=== PATIENT | female | born 1970 | race Caucasian/White ===

== ENCOUNTER 2023-05-05 07:59 | Observation (INO) ==
--- NOTE | 2023-04-27 13:58 | PAT Medication Instructions ---
Medication Instructions Date of Service April 27, 2023 Home Medications Magnesium Blend 1 tab PO QAM calcium carbonate 600 mg calcium (1,500 mg) tablet (Calcium) 600 mg PO DAILY cholecalciferol (vitamin D3) 25 mcg (1,000 unit) tablet (Vitamin D3) 25 mcg PO DAILY lactobacillus combination no.4 3 billion cell capsule (Probiotic) 3,000 mmu cells PO DAILY multivitamin 1 tab PO QAM DO NOT take the morning of surgery Magnesium Blend 1 tab PO QAM calcium carbonate 600 mg calcium (1,500 mg) tablet (Calcium) 600 mg PO DAILY cholecalciferol (vitamin D3) 25 mcg (1,000 unit) tablet (Vitamin D3) 25 mcg PO DAILY lactobacillus combination no.4 3 billion cell capsule (Probiotic) 3,000 mmu cells PO DAILY multivitamin 1 tab PO QAM Other Notes If you have any questions please call us at [phone] or [phone] or [phone] or [phone]
--- NOTE | 2023-04-28 12:01 | Anesthesiology Consultation ---
Date of Service April 28, 2023 Assessment & Plan (1) Encounter for pre-operative examination: - Infectious disease screening: Per assessment on 04/28/23: No known infectious disease contacts or current infectious disease symptoms. No noted recent Covid positive test result. - PCP visit (04/27/23): "Low medical risk for the listed procedure" Chart Review Chart Review: Acceptable Risk for Surgery and Patient seen in Pre Admission Testing Teaching & Discussion Pre-Anesthesia Teaching/Discussion Notes: Instructed NPO after midnight before surgery,except medications with 15 cc of water. Medication instructions provided according to the PAT guidelines. History Surgery Operation Date: 05/05/23 09:55 Proposed Procedures p C6 Corpectomy With Spinal Cord Monitoring - London Lawrence, Height/Weight Height: 5 ft 2 in Weight: 60.5 kg Allergies Allergy/AdvReac Type Severity Reaction Status Date / Time diphenhydramine AdvReac Unknown Hyperactivity, Verified 04/28/23 12:18 fatigue Medications Home Medications Medication Instructions Recorded Confirmed Last Taken Magnesium Blend 1 tab PO QAM 04/24/23 04/24/23 Unknown calcium carbonate 600 mg calcium 600 mg PO DAILY 04/24/23 04/24/23 Unknown (1,500 mg) tablet (Calcium) cholecalciferol (vitamin D3) 25 25 mcg PO DAILY 04/24/23 04/24/23 Unknown mcg (1,000 unit) tablet (Vitamin D3) lactobacillus combination no.4 3 3,000 mmu cells PO DAILY 04/24/23 04/24/23 Unknown billion cell capsule (Probiotic) multivitamin 1 tab PO QAM 04/24/23 04/24/23 Unknown Past Medical History Medical History Cervical spondylosis GERD (gastroesophageal reflux disease) Per [facility] records 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, 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 Exercise / Class Metabolic Activity II 4-5 Yardwork/Stairs/Walk up hill (one FS: No CP, no SOB) Past Family History Family History Other No family history of adverse response to anesthesia Past Surgical History Surgical History History of esophagogastroduodenoscopy (EGD) Hx of colonoscopy Hx of hysterectomy Hx of lymph node excision right axilla Hx of wisdom tooth extraction Past Anesthesia History No Hx of Anesthesia Complications and No Family Hx of Anesthesia Complications History of PONV No Hx of PONV and No Hx of Motion Sickness Social History Smoking Status: Never smoker Do You Dip or Chew Tobacco: No Hx Alcohol Use: No Hx Substance Use: No substance use type: does not use Review of Systems Patient denies chest pain, shortness of breath, dyspnea on exertion, fever, chills, cough, wheezing, palpitations. Physical Exam Vital Signs BP 102/70 P 68 TEMP 98.1 SP02 97%RA RESP 16 Physical Full cervical extension range of motion. Full TMJ range of motion. TMD 3 finger breaths Mallampati Score 2 Dentition: intact, + crown Lungs: clear throughout to auscultation Cardiac: regular rate and rhythm, no murmurs noted Spine: normal Carotid arteries: negative bruit Extremities: no LE edema Lab Results Anesthesia Preop Results Results Anesthesia Widget: WBC 5.82 K/ul (4.8-10.8) 04/28/23 Hgb 12.7 g/dl (12.0-16.0) 04/28/23 Hct 37.7 % (37.0-47.0) 04/28/23 Plt 295 K/uL (130-400) 04/28/23 Na 137 mmol/L (136-145) 04/28/23 K 3.7 mmol/L (3.5-5.1) 04/28/23 Cl 104 mmol/L (98-107) 04/28/23 CO2 27 mmol/L (21-32) 04/28/23 BUN 10 mg/dl (6-23) 04/28/23 Creat 0.62 mg/dl (0.6-1.2) 04/28/23 Glucose Level 128 mg/dl (70-99(Fasting)) H 04/28/23 PT 10.9 Seconds (9.0-12.0) 04/28/23 PTT 27 Seconds (21-31) 04/28/23 INR 1.0 (0.9-1.1) 04/28/23 Urine Color Yellow 04/28/23 Urine Appearance Clear (Clear) 04/28/23 Urine pH 7.0 (4.5-7.5) 04/28/23 Urine Specific [place] 1.008 (1.000-1.030) 04/28/23 Urine Protein Negative (Negative) 04/28/23 Urine Glucose (UA) Negative (Negative) 04/28/23 Urine Ketones Negative (Negative) 04/28/23 Urine Blood Negative (Negative) 04/28/23 Urine Nitrite Negative (Negative) 04/28/23 Urine Bilirubin Negative (Negative) 04/28/23 Urine Urobilinogen Negative (Negative) 04/28/23 Urine Leukocyte Esterase Negative (Negative) 04/28/23 Blood Type A Positive 04/28/23 Antibody Screen NEGATIVE 04/28/23 Testing Electrocardiogram Date: 04/28/23 NSR at 75bpm. "Normal ECG" Chest X-Ray Date: 04/28/23 Findings: + NAD
[~2023-05-05 07:59] MED LIST: DEXAMETHASONE SOD INJ 4 MG/ML VIAL ONE; GLYCOPYRROLATE 0.2 MG/ML VIAL ONE; LIDOCAINE 2% 2 ML VIAL/AMP(20MG/ML) INFIL ONE; MIDAZOLAM HCL 1 MG/ML 2ML VIAL ONE; ONDANSETRON INJ 2 MG/ML 2 ML VIAL ONE; PROPOFOL IV EMULSION 10 MG/ML 20 ML VIAL IV ONE; ROCURONIUM BROMIDE 10 MG/ML 5 ML VIAL IV ONE; fentaNYL citrate PF 100 MCG/2 ML VIAL ONE
[2023-05-05] MEDS: LR 60ML/HR IV SCH (08:21)
[2023-05-05] MEDS ORDERED: fentaNYL citrate PF 100 MCG/2 ML VIAL ONE (08:25)
[2023-05-05] MEDS ORDERED: PHENYLEPHRINE 100MCG/ML 10ML SYR IV ONE (08:29)
[2023-05-05] MEDS: LR 15ML/HR IV SCH (08:37)
[2023-05-05] MEDS: ACETAMINOPHEN 500 MG TAB PO SCH (08:37)
[2023-05-05] MEDS: GABAPENTIN 900 MG DOSE PO SCH (08:37)
[2023-05-05] MEDS: CeleBREX 200 MG CAP PO SCH (08:37)
[2023-05-05] MEDS ORDERED: ATROPINE SULFATE 0.1 MG/ML 10ML SYR IV PRN (08:49)
[2023-05-05] MEDS ORDERED: HYDROmorphone INJ 1 MG/ML SYRINGE IV PRN ×2 (08:49→13:05)
[2023-05-05] MEDS ORDERED: PROMETHAZINE HCL 6.25 MG in SODIUM CHLORIDE 0.9% 50 ML IV PRN (08:49)
[2023-05-05] MEDS ORDERED: ePHEDrine sulfate 50 MG/ML AMP IV PRN (08:49)
[2023-05-05] MEDS ORDERED: ONDANSETRON INJ 2 MG/ML 2 ML VIAL IV PRN ×2 (08:49→13:05)
--- NOTE | 2023-05-05 09:21 | History & Physical Bridge Note ---
Date of Service May 05, 2023 History & Physical Bridge Note I have examined the patient, reviewed the History & Physical and in the interval since the performance of the History & Physical I have noted the following changes of clinical significance: no changes noted
--- NOTE | 2023-05-05 09:22 | History & Physical Report ---
Date of Service May 05, 2023 Assessment & Plan (1) Myelopathy concurrent with and due to spinal stenosis of cervical region: Plan: C6 corpectomy History of Present Illness Chief Complaint: Neck and arm pain Primary Care Provider: Monique Petersen DO This is a 53-year-old female who presents with chronic persistent neck and arm pain after failing since course of nonoperative care is here for surgical invention. Allergies Allergy/AdvReac Type Severity Reaction Status Date / Time diphenhydramine AdvReac Unknown Hyperactivity, Verified 05/05/23 08:24 fatigue Home Medications Medication Instructions Recorded Confirmed Type Magnesium Blend 1 tab PO QAM 04/24/23 05/05/23 History calcium carbonate 600 mg calcium 600 mg PO DAILY 04/24/23 05/05/23 History (1,500 mg) tablet (Calcium) cholecalciferol (vitamin D3) 25 25 mcg PO BID 04/24/23 05/05/23 History mcg (1,000 unit) tablet (Vitamin D3) lactobacillus combination no.4 3 3,000 mmu cells PO DAILY 04/24/23 05/05/23 History billion cell capsule (Probiotic) multivitamin 1 tab PO QAM 04/24/23 05/05/23 History Past Med/Surg History Medical History Cervical spondylosis GERD (gastroesophageal reflux disease) Per [facility] records 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, 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 Surgical History History of esophagogastroduodenoscopy (EGD) Hx of colonoscopy Hx of hysterectomy Hx of lymph node excision right axilla Hx of wisdom tooth extraction Family History Other No family history of adverse response to anesthesia Social History Smoking Status: Never smoker Second Hand Exposure: No; Do You Dip or Chew Tobacco: No; Tobacco Cessation Education Requested by Patient: No Hx Alcohol Use: No Hx Substance Use: No Preferred Language: Cypriot Communication Ability: Effective Supervisor [employer] Required: No Beliefs That Will Affect Care: None Current Living Situation: Spouse Other Information That Helps Us Care for You: No Feels Safe at Home: Yes Safety Concerns: Feels Safe At This Time Assistive Devices: Glasses Physical Exam Physical Exam: Patient is alert and oriented Heart regular rhythm Lungs clear Results & Data Results & Data Vital Signs (Past 12 Hours) Vital Signs Temp Pulse Resp BP Pulse Ox O2 Del Method 05/05/23 08:30 36.6 C 68 18 114/83 100 Room Air
[2023-05-05] MEDS: ceFAZolin 2000MG 2,000 MG/15 ML SYR IV SCH (09:54)
[2023-05-05] MEDS ORDERED: SUGAMMADEX SODIUM 200 MG/2 ML VIAL IV ONE (10:22)
[2023-05-05] MEDS: ceFAZolin 330 MG/ML 1 GM VIAL ONE (10:28)
[2023-05-05] MEDS: FLOSEAL HEMOSTATIC MATRIX 10ML TOP ONE (11:22)
[2023-05-05] MEDS ORDERED: ePHEDrine sulfate 50 MG/5 ML SYR ONE (11:28)
--- NOTE | 2023-05-05 11:30 | Operative Report ---
Post Operative Report Pre & Post Diagnosis Operation Date: 05/05/23 09:55 Pre-Op Diagnosis: Cervical Spondylosis with Myelopathy, Cervical Spine Post-Op Diagnosis: Cervical Spondylosis with Myelopathy, Cervical Spine I identified the patient and participated in the time-out.: Yes Procedure Operation Date: 05/05/23 09:55 Actual Procedures #1 anterior cervical corpectomy with bilateral foraminotomies C6. #2 anterior cervical arthrodesis C5-C7. #3 placement of peek 23 mm cage C5-C7. #4 placement of locally harvested morselized autograft combined with I factor and interbody cage. #5 application of K2 M plate and screws from C5-C7. Surgeon London Lawrence, Director Of Corporate Communications Anastasiia Stoll Estimated Blood Loss 50 Findings Consistent with Post-Op Diagnosis Specimens None Indications This is a 53-year-old female who presents above-mentioned diagnosis after failing course of nonoperative care is here for surgical invention. Description of Procedure Patient met with identified informed consent obtained. Patient was then taken to the operative suite underwent a patient placed in a supine position jacks table with head [place] lateral. All bony promises well-padded eyes inspected to ensure no external pressure placed upon them. This point the anterior cervical spine was prepped and draped in a sterile fashion. With the assistance of fluoroscopy identified the C6 vertebral body and a transverse incision was placed along the right anterior aspect of the cervical spine overlying wrist region. Blunt dissection with the assistance of bipolar electrocautery is then performed down to and exposing the anterior cervical spine from C5-C7. Self- retaining tractors placed. Then performed a complete discectomy of C5-C6 out to the uncovertebral joints bilaterally. Followed by C6-C7. [place] distracting pins were then placed in C5 and C7 to distract across the C6 vertebral body. Complete corpectomy was then performed including removal of all posterior annular fibers longitudinal ligament as well as bilateral foraminotomies at C5- C6 C6-C7. The endplates were then burred to subcortical bleeding bone and a 23 mm peek cage filled with locally harvested morselized autograft and I factor tapped in position. Distracting apparatus was removed and a K2 M plate and screws applied with the assistance of fluoroscopy. The incision was then copiously irrigated explored to ensure no damage to surrounding structures remaining bleeding. 10 round FELICITA drain inserted. The incision was then closed with 2 Vicryl in the fascia and 4 Monocryl for final closure. Steri-Strip sterile dressings placed. Patient awakened taken to PACU in stable condition. Please note spinal cord monitoring was utilized at the procedure no changes noted. Lastly Anastasiia Stoll was present out the entire surgeon while the patient positioning complex portion of the surgery and final skin closure. I attest to the content of the Intraoperative Record and any orders documented therein. Any exceptions are noted below.
--- NOTE | 2023-05-05 11:50 | Fluoroscopy Report ---
FL cervical 2-3V CLINICAL HISTORY: C6 Corpectomy COMPARISON STUDY: None. FLUOROSCOPY TIME: 8 seconds. Ka, r: 0.73 mGy FLUOROSCOPIC IMAGES: 2 FINDINGS: Exact localization is difficult given partial visualization of the cervical spine. However, the findings suggest a C6 corpectomy C5-C7 anterior fusion. Hardware is intact. Surgical drain is in place. Endotracheal tube is incidentally noted. IMPRESSION: Fluoroscopy provided during C6 corpectomy and C5-C7 anterior fusion. ACT 112: Negative or not required by law. Electronically signed by: Agsuto Finch M.D. 05/05/2023 11:48 AM
[2023-05-05] MEDS: fentaNYL citrate PF 100 MCG/2 ML VIAL IV PRN (12:19)
[2023-05-05] MEDS ORDERED: diphenhydrAMINE Capsule 25 MG CAP PO PRN (13:05)
[2023-05-05] MEDS ORDERED: ONDANSETRON 4 MG OD TAB PO PRN (13:05)
[2023-05-05] MEDS ORDERED: PROMETHAZINE HCL 12.5 MG in SODIUM CHLORIDE 0.9% 50 ML IV PRN (13:05)
[2023-05-05] MEDS ORDERED: HYDROmorphone INJ 0.5 MG/0.5 ML SYR IV PRN (13:05)
[2023-05-05] MEDS ORDERED: DO NOT ADMINISTER PNEUMOCOCCAL VACCINE PRN (13:05)
[2023-05-05] MEDS ORDERED: NALOXONE HCL 0.4 MG/1 ML VIAL/CARP IV PRN (13:05)
[2023-05-05] MEDS ORDERED: METOCLOPRAMIDE HCL INJ 5 MG/ML 2 ML VIAL IV PRN (13:05)
[2023-05-05] MEDS ORDERED: ALUMINUM/MAGNESIUM SUSP 30 ML UDC PO PRN (13:05)
[2023-05-05] MEDS ORDERED: MAGNESIUM HYDROXIDE SUSP 30 ML UDC PO PRN (13:05)
[2023-05-05] MEDS ORDERED: bisacodyL 10 MG SUPP PR PRN (13:05)
[2023-05-05] MEDS ORDERED: traMADol HCL 50 MG TABLET PO PRN (13:05)
[2023-05-05] MEDS ORDERED: hydrOXYzine HCl 25 MG TAB PO PRN (13:05)
[2023-05-05] MEDS ORDERED: dexAMETHasone 8 MG in SYRINGE 0 ML IV PRN (13:05)
[2023-05-05] MEDS ORDERED: DO NOT ADMINISTER FLU VACCINE PRN (13:05)
[2023-05-05] MEDS ORDERED: LORazepam 0.5 MG in SYRINGE 0.25 ML IV PRN (13:05)
[2023-05-05] MEDS ORDERED: RACEPINEPHRINE 2.25% NEBU SOLN 0.5 ML VIAL INH PRN (13:05)
[2023-05-05] MEDS ORDERED: ACETAMINOPHEN 1,000 MG/100 ML VIAL IV PRN (13:05)
[2023-05-05] MEDS ORDERED: SOD PHOSPHATE/SOD BIPHOSPHATE ENEMA 132 ML BTL PR PRN (13:05)
[2023-05-05] MEDS ORDERED: oxyCODONE HCL IR 5 MG TAB (IMMEDIATE RELEASE) PO PRN (13:05)
[2023-05-05] MEDS ORDERED: FAMOTIDINE 20 MG TAB PO PRN (13:05)
[2023-05-05] MEDS ORDERED: LORazepam 0.5 MG TAB PO PRN (13:05)
[2023-05-05] MEDS: LACTATED RINGER'S 1,000 ML IV SCH (13:48)
[2023-05-05] MEDS: dexAMETHasone 6 MG in SYRINGE 0 ML IV SCH (13:48)
--- NOTE | 2023-05-05 15:32 | Anesthesiology Progress Note ---
Date of Service May 05, 2023 Anesthesia Post Procedure Vital Signs Vital Signs: Temp Pulse Pulse Pulse Resp BP Pulse Ox 05/05/23 15:04 36.3 C L 72 16 111/66 97 05/05/23 15:00 73 18 93 05/05/23 14:00 36.5 C 56 L 16 111/75 100 05/05/23 13:30 36.5 C 56 L 16 123/76 100 05/05/23 13:05 67 16 97 05/05/23 13:00 36.5 C 62 129/75 97 05/05/23 12:50 36.4 C L 74 14 114/67 95 05/05/23 12:40 62 15 123/76 99 05/05/23 12:30 79 17 105/70 97 05/05/23 12:20 57 L 17 121/78 100 05/05/23 12:10 64 18 117/78 100 05/05/23 12:00 65 13 125/77 100 05/05/23 11:50 80 15 120/79 100 05/05/23 11:41 36.0 C L 92 H 14 128/84 100 05/05/23 08:30 36.6 C 68 18 114/83 100 O2 Del Method O2 Flow Rate 05/05/23 15:04 Room Air 05/05/23 15:00 Room Air 05/05/23 14:00 Room Air 05/05/23 13:30 Room Air 05/05/23 13:05 Room Air 05/05/23 13:00 Room Air 05/05/23 12:50 Room Air 05/05/23 12:40 Room Air 05/05/23 12:30 Room Air 05/05/23 12:20 Room Air 05/05/23 12:10 Room Air 05/05/23 12:00 Room Air 05/05/23 11:50 Oxymask 4 05/05/23 11:41 Oxymask 10 05/05/23 08:30 Room Air Pain Intensity Posterior Neck: Pain Intensity: 2 Transfer of Care Handoff Completed per policy Notes Mental Status: alert / awake / arousable and participated in evaluation Patient Amnestic to Procedure: Yes Nausea / Vomiting: adequately controlled Pain: adequately controlled Airway Patency, RR, SpO2: stable & adequate BP & HR: stable & adequate Hydration State: stable & adequate Anesthetic Complications: no major complications apparent and Pt Satisfied with anesthetic care
[2023-05-05] MEDS: ceFAZolin 1000MG 1,000 MG/7.5 ML SYR IV SCH (17:40)
[2023-05-05] MEDS: ACETAMINOPHEN 500 MG TAB PO PRN (19:50)
[2023-05-05] MEDS: DOCUSATE SODIUM/SENNA 50/8.6MG TAB PO SCH (19:53)
[2023-05-05] MEDS: CHOLECALCIFEROL 25 MCG (1000 UNITS) TAB PO SCH (19:54)
[2023-05-06] MEDS: POLYETHYLENE (MIRALAX) 17 GM PACK PO SCH (05:27)
[2023-05-06] MEDS: CALCIUM CARBONATE 1250MG TAB PO SCH (09:18)
--- NOTE | 2023-05-06 10:08 | Discharge Summary ---
Date of Service May 06, 2023 Admission HPI Per Admitting Provider This is a 53-year-old female who presents with chronic persistent neck and arm pain after failing since course of nonoperative care is here for surgical invention. Principal Diagnosis Cervical spinal stenosis with myeloradiculopathy Discharge Data Allergies Allergy/AdvReac Type Severity Reaction Status Date / Time diphenhydramine AdvReac Unknown Hyperactivity, Verified 05/05/23 08:24 fatigue Procedures Performed Operation Date: 05/05/23 09:55 Actual Procedures p C6 Corpectomy, Spinal Cord Monitoring(Not Applicable) - London Lawrence DO Ordered Studies 05/05/23 07:00 [place] cervical 2-3V Routine Hospital Course (1) Myelopathy concurrent with and due to spinal stenosis of cervical region: Patient underwent anterior cervical decompression fusion tolerated this well was taken to orthopedic floor postoperative. Postoperatively her arm and leg symptoms markedly improved. Swallowing well. No hoarseness. Excellent strength testing. FELICITA drain decreased appropriate. Subsidy discharged home. Discharge orders instructions found in chart for further review. Total Time Total Time Spent Total Time Spent (In Minutes): 20 minutes Discharge Plan Discharge Items Patient Disposition: Home - Self-Care Reason For Visit: Cervical Spondylosis with Myelopathy, Cervical Spi Discharge Diagnosis: Cervical spinal stenosis with myeloradiculopathy Activity: As commented below Non-emergency contact: Primary Care Provider Call non-emergency contact if: you have any medication questions Follow-up/Referrals: Monique Petersen DO [Primary Care Provider] - Diet: Regular Addtl Attending Provider Instructions: ACTIVITY RECOMMENDATIONS: SELF CARE INSTRUCTIONS AFTER CERVICAL FUSIONS 1. No smoking. Smoking drastically decreases the chance of a solid fusion. 2. No bending, lifting more than 5 pounds, or twisting (roll like a log when turning in bed). 3. You may shower 3 days after surgery. Thoroughly dry wound. Do not soak in the tub. 4. Cervical collar: Must be worn at all times including sleeping. You may remove the brace only to bath, eat and if you are sitting in a recliner. 5. Please walk as much as you can for exercise. Gradually increase the distance that you walk as your endurance increases. SPECIAL CARE INSTRUCTIONS: VERY IMPORTANT TO READ AND REVIEW A. Do not take any anti-inflammatory medications (i.e. Indocin, Advil, Aspirin, Naprosyn, Aleve, Motrin, etc.) as these may inhibit the chance of a solid fusion. Tylenol is okay to take. B. Your surgical incision has been closed with a cosmetic suture under the skin that will dissolve in about 6 weeks. In 14 days, you can use a pair of clean scissors and cut the suture that is left outside of the skin at the ends of your incision. C. Complications are uncommon, but please contact us if you have any signs or symptoms of: 1. wound infection (fever higher than 102.5 degrees F, redness, separation of wound, drainage, or increasing pain from the incision) 2. blood clots in legs (pain, swelling, redness and warmth in legs) 3. urinary tract infection (fever higher than 102.5 degrees, burning upon urination or increased frequency of urination) 4. nerve problems (inability to walk on your toes or heels, numbness, loss of bowel or bladder control) 5. any other symptoms that concern you. D. Please call the office at if you have any concerns or questions about your operation or recovery. MANAGING PAIN AFTER SPINAL SURGERY 1. Narcotic medication is intended for short-term use and will be provided for surgical pain. Surgical pain usually lasts for a period of 4-6 weeks. Narcotic medication includes Percocet, Vicodin, Darvocet, Tylenol #3 or Lortab. 2. Longer-term pain is more appropriately treated with non-narcotic medication such as Tylenol ES. 3. Muscle spasm is not appropriately treated with narcotics. Muscle relaxers such as Soma, Flexeril or Skelaxin can be used along with Tylenol ES. 4. Remember that we all live with some "aches and pains". This is not unusual or uncommon after an injury or as we get older. 5. We will provide appropriate medication within the normal guidelines of their prescribed use. We will also be very cautious and aware of potential abuse and extended duration of patients' medication needs. 6. Please allow 2-3 days to process refills. Prescriptions will not be mailed but must be picked up at the office. FOLLOW UP VISIT: Keep your scheduled follow-up appointment. Any questions, please call the office at . Pending Studies at Discharge: No Stand-Alone Forms: rumr, Smoking Cessation Medications and DC Order Prescriptions: New tramadol 50 mg tablet 50 mg PO Q6H PRN (Reason: pain, moderate) Qty: 20 0RF oxycodone 5 mg tablet 5 mg PO Q6H PRN (Reason: pain) Qty: 20 0RF Continued multivitamin Tablet 1 tab PO QAM calcium carbonate [Calcium 600] 600 mg calcium (1,500 mg) Tablet 600 mg PO DAILY cholecalciferol (vitamin D3) [Vitamin D3] 25 mcg (1,000 unit) Tablet 25 mcg PO BID Probiotic 3 billion cell Capsule 3,000 mmu cells PO DAILY Rx Instructions: administer with a meal Magnesium Blend 1 tab PO QAM Discharge Orders: Discharge Order (Routine); Ordered 05/06/23 Ordered By: London Lawrence Admission Data Admit Date/Time: 05/05/23 11:33 Attending Provider: London Lawrence Admit Provider: London Lawrence Primary Care Provider: Monique Petersen
== END 2023-05-06 12:14 | disposition home or self-care (01) ==
LOC: 3E 07:59 → ASU 07:59
DX: Z88.6 Allergy status to analgesic agent; M48.02 Spinal stenosis, cervical region; Z87.19 Personal history of other diseases of the digestive system; M47.12 Other spondylosis with myelopathy, cervical region; M47.22 Other spondylosis with radiculopathy, cervical region